=== PATIENT | male | born 1940 | race Hispanic/Latino ===

== ENCOUNTER → 2019-04-23 | Outpatient (CLI) | payer MEDICARE, OTHER ==
[~2019-04-23] MED LIST: ACIPHEX20 MG PO; ATORVASTATIN CA20 MG PO; BYSTOLIC5 MG PO; CARVEDILOL3.125 MG PO; CHOLESTYRAMINE 4 GM; DIPHENOXYLATE-1 EACH; FENOFIBRATE160 MG PO; GEMFIBROZIL600 MG PO; GERITOL COMPLE1 EACH PO; GLIPIZIDE5 MG PO; JANUMET XR 50-1 EAC1 PO; LISINOPRIL5 MG PO; PIOGLITAZONE HC45 MG PO; PROAIR HFA INH8.5 GM INH; SUCRALFATE; SYMBICORT 16010.2 GM INH; TUDORZA PRESS400 MCG INH; VIIBRYD10 MG PO; VIIBRYD20 MG PO; VIIBRYD40 MG PO; XARELTO20 MG PO
--- NOTE | 2019-04-23 10:25 | Diagnostic Imaging Report ---
EXAMINATION: MRI of the lumbar spine without contrast HISTORY: Low back pain radiating into the left lower extremity with numbness and weakness for the last 6 months COMPARISON: None. TECHNIQUE: Sagittal T1, T2, STIR; axial T2 and proton density. FINDINGS: It is assumed that there are 5 lumbar vertebrae. Curvature/Alignment: Mild straightening of the lumbar lordosis which may be related to muscle spasm or positional. Vertebrae: No evidence of recent fracture, infection, or neoplasm. Large benign hemangioma in the anterior L4 vertebral body, smaller one adjacent to the inferior endplate of L3. Conus: Normal, terminating at L1-L2 Cauda equina: Unremarkable. Lower thoracic: Unremarkable. Paraspinal soft tissues: Unremarkable. Degenerative changes: L1-L2: Minimal symmetric disc bulge and facet arthrosis without spinal canal or foraminal stenosis. L2-L3: Unremarkable L3-L4: Minimal disc bulge and mild facet arthrosis. No canal or foraminal stenosis. L4-L5: Mild decreased disc height and T2 signal intensity, symmetric disc bulge and moderate facet arthrosis as well as ligamenta flava thickening. [id number] spinal canal and mild foraminal stenoses. Minimal bilateral facet joint effusion and reactive bone marrow edema in the right facet extending to the right L5 pedicle, related to mild degenerative facet synovitis. L5-S1: Minimal symmetric disc bulge, moderate facet arthrosis. Circumferential prominence of the epidural fat. Moderate bilateral foraminal stenoses. IMPRESSION: 1. 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 2. Moderate degenerative bilateral foraminal stenosis at L5-S1. 3. 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 Signed by: Dr. Justina Gardner M.D. on 04/23/2019 10:22 AM
== END ==
LOC: MRI 08:14
PROVIDERS: ATTEND Family Medicine
DX: M54.5 Low back pain (principal); M51.36 Other intervertebral disc degeneration, lumbar region
CPT/HCPCS: 72148

== ENCOUNTER → 2020-12-10 | Day surgery (SDC) | payer MEDICARE, OTHER ==
[2020-12-07 10:39] LABS: BASOPHILS # (AUTO) 0.1 (0.0-0.1); EOSINOPHILS # (AUTO) 0.2 (0.0-0.4); EOSINOPHILS % 3.6 % (0.0-6.0); HEMOGLOBIN 11.7 g/dL (14.0-18.0); LYMPHOCYTES # (AUTO) 1.5 (1.0-3.2); LYMPHOCYTES % 27.7 % (18.0-39.1); MEAN CORPUSCULAR HEMOGLOBIN 32.3 pg (28-32); MEAN CORPUSCULAR HGB CONC 34.4 g/dL (31-35); MEAN CORPUSCULAR VOLUME 93.9 fL (81-99); MONOCYTES # (AUTO) 0.4 (0.2-0.8); MONOCYTES % 7.6 % (4.4-11.3); NEUTROPHILS # (AUTO) 3.1 (2.1-6.9); NEUTROPHILS % 59.1 % (38.7-80.0); PLATELET COUNT 194 x10e3/uL (140-360); RED BLOOD COUNT 3.62 x10e6/uL (4.3-5.7); RED CELL DISTRIBUTION WIDTH 13.6 % (11.7-14.4)
[~2020-12-10] MED LIST changes: +CITALOPRAM HBR40 MG PO; +FENTANYL CITRATE/PF 100MCG/2 ML INJ ONE; +GLUCAGON FOR INJ 1 MG VIAL ONE; +HYOSCYAMINE SULFATE 0.5 MG/ML INJ ONE; +LEVOTHYROXINE75 MCG PO; +LIDOCAINE HCL 2% LOCAL INJ 5 ML SDV VIAL INJ ONE; +METFORMIN HCL500 MG PO; +OMEPRAZOLE40 MG PO; +PROPOFOL IV EMULSION 10 MG/ML 20 ML VIAL ONE; +SIMETHICONE 40 MG/0.6 ML BTL ONE
[2020-12-10 09:30] VITALS: BP 117/90
[2020-12-10 13:55] LABS: WBC,FECAL (FECAL LACTOFERRIN) NEGATIVE (NEGATIVE)
[2020-12-11 14:30] LABS: C DIFFICILE TOXIN A&B AMP PROB NEGATIVE (NEGATIVE)
== END | disposition home or self-care (01) ==
LOC: OR 05:58
PROVIDERS: ATTEND Internal Medicine Gastroenterology
DX: R19.7 Diarrhea, unspecified (principal); K63.5 Polyp of colon; K31.7 Polyp of stomach and duodenum; K29.70 Gastritis, unspecified, without bleeding; K21.9 Gastro-esophageal reflux disease without esophagitis; K20.90 Esophagitis, unspecified without bleeding; K64.8 Other hemorrhoids; G47.33 Obstructive sleep apnea (adult) (pediatric); J44.9 Chronic obstructive pulmonary disease, unspecified; E11.9 Type 2 diabetes mellitus without complications; I10 Essential (primary) hypertension; I48.91 Unspecified atrial fibrillation; Z01.812 Encounter for preprocedural laboratory examination; Z20.822 Contact with and (suspected) exposure to COVID-19; Z79.84 Long term (current) use of oral hypoglycemic drugs; Z79.02 Long term (current) use of antithrombotics/antiplatelets
CPT/HCPCS: 36415 ×2; 43239; 45380; 82948; 83630; 83993; 85025; 87045; 87177; 87328; 87493; 88305; 88312; J1610; J1980; J2001; J2704; J3010; U0002; 45378

== ENCOUNTER 2022-01-11 09:36 | Emergency (ER) | payer MEDICARE, OTHER ==
[~2022-01-11] VITALS: Ht 182.9 cm; Wt 97.5 kg
[~2022-01-11 09:36] MED LIST changes: -FENTANYL CITRATE/PF 100MCG/2 ML INJ ONE; -GLUCAGON FOR INJ 1 MG VIAL ONE; -HYOSCYAMINE SULFATE 0.5 MG/ML INJ ONE; -LIDOCAINE HCL 2% LOCAL INJ 5 ML SDV VIAL INJ ONE; -PROPOFOL IV EMULSION 10 MG/ML 20 ML VIAL ONE; -SIMETHICONE 40 MG/0.6 ML BTL ONE
[2022-01-11] MEDS ORDERED: MONTELUKAST SOD10 MG PO (10:59)
== END 2022-01-11 11:46 | disposition home or self-care (01) ==
LOC: ER 10:02
DX: R05.9 Cough, unspecified (principal); J31.0 Chronic rhinitis; E78.00 Pure hypercholesterolemia, unspecified; Z20.822 Contact with and (suspected) exposure to COVID-19
CPT/HCPCS: 71046; 99283; U0002

== ENCOUNTER → 2025-04-03 | Outpatient (REF) | payer MEDICARE, OTHER ==
[~2025-04-03] MED LIST changes: +IOPAMIDOL 370 MG/ML 100 ML INFUS..BTL INJ ONE; +MONTELUKAST SOD10 MG PO
[2025-04-03 08:55] LABS: EST GLOMERULAR FILTRATION RATE 83.0 ML/MIN (>=60)
== END ==
LOC: CT 07:54
PROVIDERS: ATTEND Nurse Practitioner
DX: R10.84 Generalized abdominal pain (principal)
CPT/HCPCS: 36415; 74177; 82565; 84520; Q9967

== ENCOUNTER → 2025-05-02 | Outpatient (REF) | payer MEDICARE, OTHER ==
[~2025-05-02] MED LIST changes: +ACETAMINOPHEN325 M1 PO; +DIPHENOXYLATE-1 EACH PO; +FARXIGA10 MG PO; +FLOMAX0.4 MG PO; +FLONASE ALLERG9.9 ML INH; -IOPAMIDOL 370 MG/ML 100 ML INFUS..BTL INJ ONE; +LOPERAMIDE2 MG PO; +SERTRALINE HCL50 MG PO; +[UNRECOGNIZED DRUG - REMARK] PO
[2025-05-02 09:55] LABS: BASOPHILS % 0.8 % (0.0-1.0); EOSINOPHILS % 3.9 % (0.0-6.0); LYMPHOCYTES % 27.5 % (18.0-39.1); MONOCYTES % 6.4 % (4.4-11.3); NEUTROPHILS % 60.9 % (38.7-80.0); RED CELL DISTRIBUTION WIDTH 13.7 % (11.7-14.4)
== END ==
LOC: RAD 09:00 → EDSTATUS 05-08 10:00
PROVIDERS: ATTEND Internal Medicine Gastroenterology
DX: Z01.810 Encounter for preprocedural cardiovascular examination (principal); Z01.812 Encounter for preprocedural laboratory examination; R19.7 Diarrhea, unspecified; Z86.0100 Personal history of colon polyps, unspecified
CPT/HCPCS: 36415; 85025; 93005